=== PATIENT | female | born 1950 | race Caucasian/White ===

== ENCOUNTER 2018-09-06 18:02 | Emergency (ER) | payer MEDICARE, OTHER ==
[2018-09-06 18:18] VITALS: TEMP 97.7
[2018-09-06] MEDS ORDERED: hydrALAZINE HCL 20 MG/ML 1 ML VIAL IVP STA (18:42)
--- NOTE | 2018-09-06 18:45 | ED ---
General Adult HPI - General Chief complaint: Recheck/Abnormal Lab/Rx Stated complaint: Dizziness, High BP Time Seen by Provider: 09/06/18 18:05 Source: patient, RN notes reviewed Mode of arrival: ambulatory Limitations: no limitations - History of Present Illness Initial comments: This is a 68-year-old female who presents emergency Department complaining that her blood pressures been hyper patient states she went to urgent care about a month ago and they gave her lisinopril but she ran out of it and has not been able to see another physician since. Patient states her daughtersand has been taking her blood pressures been high every day and today she decided come the emergency department because she was experiencing a little lightheadedness. Pat ient denies headache patient denies any numbness or focal weakness. Patient denies any chest pain difficulty breathing shortness breath per patient denies any palpitations. Patient denies any blurred vision. Patient denies any abdominal pain. Patient denies any recent fever chills or cough. Patient denies any nausea vomiting diarrhea. Patient denies any leg swelling or calf tenderness. - Related Data Home Medications Medication Instructions Recorded Confirmed Azo (Unknown) 1 tab PO DAILY 09/06/18 09/06/18 Fluticasone Nasal [place] [Flonase 2 sprays EA NOSTRIL BID 09/06/18 09/06/18 Nasal [place]] Glucosamine-Chondr 500-400Mg 1 tab PO DAILY 09/06/18 09/06/18 Ipratropium [place] 0.06%Nasal 2 sprays EA NOSTRIL HS 09/06/18 09/06/18 [Atrovent Nasal 0.06%] Lisinopril [Zestril] 10 mg PO DAILY 09/06/18 09/06/18 Multivitamin [Multivitamins Adult 1 tab PO DAILY 09/06/18 09/06/18 Gummies] Previous Rx's Medication Instructions Recorded amLODIPine [Norvasc] 5 mg PO DAILY #30 tab 09/06/18 Allergies Allergy/AdvReac Type Severity Reaction Status Date / Time No Known Allergies Allergy Verified 09/06/18 18:36 Review of Systems ROS Statement: Those systems with pertinent positive or pertinent negative responses have been documented in the HPI. ROS Other: All systems not noted in ROS Statement are negative. Past Medical History Past Medical History: Hypertension History of Any Multi-Drug Resistant Organisms: None Reported Past Surgical History: Tonsillectomy Past Psychological History: No Psychological Hx Reported Smoking Status: Former smoker Past Alcohol Use History: None Reported Past Drug Use History: None Reported General Exam - General Exam Comments Initial Comments: GENERAL: Patient is well-developed and well-nourished. Patient is nontoxic and well- hydrated and is in no acute distress. ENT: Neck is soft and supple. No significant lymphadenopathy is noted. Oropharynx is clear. Moist mucous membranes. Neck has full range of motion without eliciting any pain. EYES: The sclera were anicteric and conjunctiva were pink and moist. Extraocular movements were intact and pupils were equal round and reactive to light. Eyelids were unremarkable. PULMONARY: Unlabored respirations. Good breath sounds bilaterally. No audible rales rhonchi or wheezing was noted. CARDIOVASCULAR: There is a regular rate and rhythm without any murmurs gallops or rubs. ABDOMEN: Soft and nontender with normal bowel sounds. No palpable organomegaly was noted. There is no palpable pulsatile mass. SKIN: Skin is clear with no lesions or rashes and otherwise unremarkable. NEUROLOGIC: Patient is alert and oriented x3. Cranial nerves II through XII are grossly intact. Motor and sensory are also intact. Normal speech, volume and content. Symmetrical smile. MUSCULOSKELETAL: Normal extremities with adequate strength and full range of motion. No lower extremity swelling or edema. No calf tenderness. LYMPHATICS: No significant lymphadenopathy is noted PSYCHIATRIC: Normal psychiatric evaluation. Limitations: no limitations Course Vital Signs 09/06/18 09/06/18 09/06/18 18:12 18:33 18:40 Temperature 97.7 F Pulse Rate 79 71 Respiratory 18 46 H Rate Blood Pressure 209/122 230/125 O2 Sat by Pulse 99 98 97 Oximetry 09/06/18 09/06/18 09/06/18 18:42 18:50 19:00 Temperature Pulse Rate 66 71 73 Respiratory 18 10 L 11 L Rate Blood Pressure 221/130 230/125 230/125 O2 Sat by Pulse 100 100 97 Oximetry 09/06/18 09/06/18 09/06/18 19:10 19:20 19:30 Temperature Pulse Rate 73 80 84 Respiratory 30 H 16 31 H Rate Blood Pressure 221/130 224/127 224/127 O2 Sat by Pulse 100 99 Oximetry 09/06/18 09/06/18 09/06/18 19:40 19:48 19:50 Temperature Pulse Rate 85 83 83 Respiratory 15 16 21 Rate Blood Pressure 181/110 185/107 185/107 O2 Sat by Pulse 100 100 99 Oximetry 09/06/18 20:00 Temperature Pulse Rate 87 Respiratory 19 Rate Blood Pressure 185/107 O2 Sat by Pulse 100 Oximetry Medical Decision Making - Medical Decision Making EKG shows normal sinus rhythm at 70 bpm NE interval is 130 QRS is 84 Q-T intervals 428 QTC is 462. Patient's EKG shows no ST segment elevation or depression or T wave abnormalities are noted. - Lab Data Result diagrams: 09/06/18 18:57 09/06/18 18:57 Lab Results 09/06/18 09/06/18 09/06/18 Range/Units 18:57 18:57 18:57 WBC 6.0 (3.8-10.6) k/uL RBC 4.22 (3.80-5.40) m/uL Hgb 12.9 (11.4-16.0) gm/dL Hct 40.0 (34.0-46.0) % MCV 94.7 (80.0-100.0) fL MCH 30.5 (25.0-35.0) pg MCHC 32.3 (31.0-37.0) g/dL RDW 13.0 (11.5-15.5) % Plt Count 319 (150-450) k/uL Neutrophils % 70 % Lymphocytes % 20 % Monocytes % 6 % Eosinophils % 2 % Basophils % 1 % Neutrophils # 4.2 (1.3-7.7) k/uL Lymphocytes # 1.2 (1.0-4.8) k/uL Monocytes # 0.3 (0-1.0) k/uL Eosinophils # 0.1 (0-0.7) k/uL Basophils # 0.0 (0-0.2) k/uL PT 10.1 (9.0-12.0) sec INR 0.9 (<1.2) APTT 24.3 (22.0-30.0) sec Sodium 140 (137-145) mmol/L Potassium 3.7 (3.5-5.1) mmol/L Chloride 106 (98-107) mmol/L Carbon Dioxide 27 (22-30) mmol/L Anion Gap 7 mmol/L BUN 16 (7-17) mg/dL Creatinine 0.57 (0.52-1.04) mg/dL Est GFR (CKD-EPI)AfAm >90 (>60 ml/min/1.73 sqM) Est GFR (CKD-EPI)NonAf >90 (>60 ml/min/1.73 sqM) Glucose 86 (74-99) mg/dL Calcium 9.2 (8.4-10.2) mg/dL Magnesium 2.0 (1.6-2.3) mg/dL Total Bilirubin 0.5 (0.2-1.3) mg/dL AST 25 (14-36) U/L ALT 32 (9-52) U/L Alkaline Phosphatase 101 (38-126) U/L Troponin I (0.000-0.034) ng/mL Total Protein 6.8 (6.3-8.2) g/dL Albumin 3.5 (3.5-5.0) g/dL 09/06/18 Range/Units 18:57 WBC (3.8-10.6) k/uL RBC (3.80-5.40) m/uL Hgb (11.4-16.0) gm/dL Hct (34.0-46.0) % MCV (80.0-100.0) fL MCH (25.0-35.0) pg MCHC (31.0-37.0) g/dL RDW (11.5-15.5) % Plt Count (150-450) k/uL Neutrophils % % Lymphocytes % % Monocytes % % Eosinophils % % Basophils % % Neutrophils # (1.3-7.7) k/uL Lymphocytes # (1.0-4.8) k/uL Monocytes # (0-1.0) k/uL Eosinophils # (0-0.7) k/uL Basophils # (0-0.2) k/uL PT (9.0-12.0) sec INR (<1.2) APTT (22.0-30.0) sec Sodium (137-145) mmol/L Potassium (3.5-5.1) mmol/L Chloride (98-107) mmol/L Carbon Dioxide (22-30) mmol/L Anion Gap mmol/L BUN (7-17) mg/dL Creatinine (0.52-1.04) mg/dL Est GFR (CKD-EPI)AfAm (>60 ml/min/1.73 sqM) Est GFR (CKD-EPI)NonAf (>60 ml/min/1.73 sqM) Glucose (74-99) mg/dL Calcium (8.4-10.2) mg/dL Magnesium (1.6-2.3) mg/dL Total Bilirubin (0.2-1.3) mg/dL AST (14-36) U/L ALT (9-52) U/L Alkaline Phosphatase (38-126) U/L Troponin I <0.012 (0.000-0.034) ng/mL Total Protein (6.3-8.2) g/dL Albumin (3.5-5.0) g/dL Disposition Clinical Impression: Hypertensive urgency Disposition: HOME SELF-CARE Condition: Good Instructions (If sedation given, give patient instructions): Hypertension (ED) Prescriptions: amLODIPine [Norvasc] 5 mg PO DAILY #30 tab Is patient prescribed a controlled substance at d/c from ED?: No Referrals: None,Stated [Primary Care Provider] - 1-2 days
[2018-09-06 19:09] LABS: Basophils % (A) 1 %; Eosinophils # (A) 0.1 k/uL (0-0.7); Eosinophils % (A) 2 %; HGB 12.9 gm/dL (11.4-16.0); Lymphocytes # (A) 1.2 k/uL (1.0-4.8); Lymphocytes % (A) 20 %; MCH 30.5 pg (25.0-35.0); MCHC 32.3 g/dL (31.0-37.0); MCV 94.7 fL (80.0-100.0); Mean Platelet Volume 6.6; Monocytes # (A) 0.3 k/uL (0-1.0); Monocytes % (A) 6 %; Neutrophils # (A) 4.2 k/uL (1.3-7.7); Neutrophils % (A) 70 %; Platelet Count 319 k/uL (150-450); RBC 4.22 m/uL (3.80-5.40)
[2018-09-06 19:19] LABS: ALT 32 U/L (9-52); AST 25 U/L (14-36); Albumin 3.5 g/dL (3.5-5.0); Alkaline Phosphatase 101 U/L (38-126); Anion Gap 7 mmol/L; Blood Urea Nitrogen 16 mg/dL (7-17); Calcium 9.2 mg/dL (8.4-10.2); Carbon Dioxide 27 mmol/L (22-30); Chloride 106 mmol/L (98-107); Glucose 86 mg/dL (74-99); Potassium 3.7 mmol/L (3.5-5.1); Sodium 140 mmol/L (137-145); Total Bilirubin 0.5 mg/dL (0.2-1.3); Total Protein 6.8 g/dL (6.3-8.2)
[2018-09-06 19:21] LABS: INR 0.9 (<1.2); Partial Thromboplastin Time 24.3 sec (22.0-30.0); Prothrombin Time 10.1 sec (9.0-12.0)
[2018-09-06] MEDS ORDERED: ENALAPRILAT 1.25 MG/ML 1 ML VIAL IVP STA (19:53)
--- NOTE | 2018-09-06 19:59 | XR ---
EXAMINATION: XR chest 2V DATE AND TIME: 09/06/2018 7:26 PM CLINICAL INDICATION: PHH; Chest Pain TECHNIQUE: Departmental protocol COMPARISON: None FINDINGS: There is a subtle 3 cm ill-defined opacity superimposed over the lower scapula and the right lateral mid lung zone. The vast bulk of the lung parenchyma is clear bilaterally. The pleural spaces are negative. The cardiac silhouette is not enlarged. Thoracic aorta is tortuous, and the ascending aorta may be enlarged in caliber. The skeletal structures and soft tissues are negative for acute findings. IMPRESSION: NO DEFINITE ACUTE PROCESS. However, two findings are notable: 3 cm opacity over the lateral right midlung zone, and thoracic aor ta ectasia. These can both be further characterized using nonurgent IV contrast chest CT.
[2018-09-06] MEDS ORDERED: ONDANSETRON 4 MG/2 ML VIAL IVP STA (20:10)
[2018-09-06 20:56] VITALS: BP 164/94; PULSE 83; RESP 17
== END 2018-09-06 21:11 | disposition home or self-care (01) ==
LOC: EC 18:02
DX: I16.0 Hypertensive urgency (principal); I10 Essential (primary) hypertension; Z79.51 Long term (current) use of inhaled steroids; Z79.899 Other long term (current) drug therapy; Z87.891 Personal history of nicotine dependence
CPT/HCPCS: 36415; 93005; 80053; 83735; 84484; 85025; 85610; 85730; 71046; 99284; 96374; 96375 ×2; J0360; J2405

== ENCOUNTER → 2018-11-30 | Outpatient (CLI) | payer MEDICARE, OTHER ==
[2018-11-30 16:06] LABS: Albumin/Globulin Ratio 1.74 (1.60-3.17); Anion Gap 5.8 mmol/L (4.00-12.00); Calcium 9.3 mg/dL (8.7-10.3); Carbon Dioxide 31.2 mmol/L (21.6-31.8); Globulin 2.3 g/dL (1.6-3.3); LDL Cholesterol,Calculated 119.4 mg/dL (0.0-131.0); Potassium 4.2 mmol/L (3.5-5.5); Total Bilirubin 0.3 mg/dL (0.2-1.2); Total Protein 6.3 g/dL (6.2-8.2); VLDL Calculation 17.6 mg/dL (5.00-40.00)
== END | disposition home or self-care (01) ==
LOC: LABWHC1 08:13
PROVIDERS: ATTEND Family Medicine
DX: I10 Essential (primary) hypertension (principal)
CPT/HCPCS: 36415; 80053; 80061; 84443

== ENCOUNTER → 2019-02-08 | Outpatient (CLI) | payer MEDICARE, OTHER ==
--- NOTE | 2019-02-08 10:29 | XR ---
EXAMINATION TYPE: XR chest 2V DATE OF EXAM: 02/08/2019 COMPARISON: 09/06/2018 TECHNIQUE: PA and lateral views submitted. HISTORY: Abnormal x-ray FINDINGS: The lungs are clear and there is no pneumothorax, pleural effusion, or focal pneumonia. Tortuous ao rta noted. Hyperinflation seen. Hypertrophic change spine. Arthropathy of the AC joints. Near complet e resolution of density in the right mid lung. IMPRESSION: 1. There appears to be near complete resolution of previously described density in the right midlung. 2. Correlate for COPD
== END | disposition home or self-care (01) ==
LOC: RADXRMAIN 10:07
PROVIDERS: ATTEND Family Medicine
DX: R93.89 Abnormal findings on diagnostic imaging of other specified body structures (principal); R07.89 Other chest pain; R06.09 Other forms of dyspnea
CPT/HCPCS: 71046

== ENCOUNTER → 2019-02-21 | Outpatient (CLI) | payer MEDICARE, OTHER ==
--- NOTE | 2019-02-21 12:03 | EST ---
EXERCISE STRESS DATE OF SERVICE: 02/21/2019 AGE: 68 SEX: Female HT: 62" WT: 104 pounds PROTOCOL: Cardiolite Farhad STAGE: IV DURATION OF EXERCISE: 15 minutes HEART RATE REST: 55 BLOOD PRESSURE REST: 157/85 MAXIMUM HEART RATE ACHIEVED: 124 MAXIMUM BLOOD PRESSURE: 185/98 85% MPHR: 128 100% MPHR: 150 METS: 11 INDICATIONS: Chest pain. CLINICAL INFORMATION: Baseline EKG shows sinus rhythm, normal axis, normal intervals. Patient exercised on Farhad protocol for a total of 15 minutes. However, patient was between stage III and stage IV and only the inclination was increased so the maximum METs achieved was around 11. The patient attained 83% of predicted maximal heart rate without chest pain or diagnostic ST-segment depression. CONCLUSIONS: 1. Good exercise tolerance. 2. Inconclusive stress test by EKG criteria due to inability to attain target heart rate. 3. Cardiolite portion of the stress test will be reported separately. MMODL / IJN: [id number] /
--- NOTE | 2019-02-21 12:07 | NM ---
EXAMINATION TYPE: NM stress cardiolite complete DATE OF EXAM: 02/21/2019 COMPARISON: NONE HISTORY: Atypical chest pain TECHNIQUE: After the intravenous administration of 9.4 mCi Tc 99m Sestamibi - Rest images obtained 4 5 minutes post injection. The patient exercised using a FELIX protocol and 1 minute prior to peak e xercise was injected with 25.8 mCi Tc 99m Sestamibi - Stress images obtained 10 minutes post injectio n. Patient achieved just short of 85% predicted maximal heart rate, 83% was obtained. FINDINGS: Targeted heart rate was achieved during performance of the study. Review of stress and rest SPECT irene ges demonstrates no distinct perfusion abnormality. Some questionable mild decreased uptake along the septum on stress images as compared to rest images on short axis views is not confirmed on additiona l images. Gated analysis shows normal wall motion with an estimated left ventricular ejection fractio n of 69 %. IMPRESSION: Questionable stress-induced left ventricular myocardial ischemia along the septum on short axis views only, suboptimal stress, elevated ejection fraction, consider echocardiographic correlation. A Yellow level critical message alert has been initiated for Joaquina Arriaga MD via the [facility] Critical Results System on 02/21/2019 12:04 PM. This message alert has been sent to Joaquina lucero MD via the preferences provided by the clinician for the receipt of Radiology Critical Findin gs. Message ID [id number].
== END ==
LOC: RADNMMAIN 07:31
PROVIDERS: ATTEND Family Medicine
DX: I10 Essential (primary) hypertension (principal); R07.89 Other chest pain; R06.09 Other forms of dyspnea
CPT/HCPCS: 93017; 78452; A9500

== ENCOUNTER → 2019-02-28 | Outpatient (CLI) | payer MEDICARE, OTHER ==
--- NOTE | 2019-03-01 07:21 | ECHOF ---
Referral Reason:R06.02 shortness of breath, I10 HTN, MEASUREMENTS -------- HEIGHT: 157.5 cm WEIGHT: 47.2 kg BP: RVIDd: 2.8 cm (< 3.3) IVSd: 1.1 cm (0.6 - 1.1) LVIDd: 3.6 cm (3.9 - 5.3) LVPWd: 1.3 cm (0.6 - 1.1) IVSs: 1.7 cm LVIDs: 2.4 cm LVPWs: 1.7 cm LAESV Index (A-L): 39.88 ml/m Ao Diam: 2.6 cm (2.0 - 3.7) AV Cusp: 1.7 cm (1.5 - 2.6) LA Diam: 3.9 cm (2.7 - 3.8) MV EXCURSION: 12.755 mm (> 18.000) MV EF SLOPE: 103 mm/s (70 - 150) EPSS: 0.6 cm MV E Joe: 0.83 m/s MV DecT: 172 ms MV A Joe: 0.66 m/s MV E/A Ratio: 1.25 AR PHT: 562 ms RAP: 5.00 mmHg RVSP: 25.48 mmHg FINDINGS -------- Sinus rhythm. This was a technically adequate study. The left ventricular size is normal. There is mild concentric left ventricular hypertrophy. Overa ll left ventricular systolic function is normal with, an EF between 55 - 60 %. The diastolic fillin g pattern is normal for the age of the patient 11.36. The right ventricle is normal in size. LA is moderately dilated 34-39 ml/m2 The right atrial size is normal. Interatrial and interventricular septum intact. There is mild aortic regurgitation. There is no evidence of aortic stenosis. Mild mitral annular calcification present. Moderate mitral regurgitation is present. Mild tricuspid regurgitation present. There is no evidence of pulmonary hypertension. The right v entricular systolic pressure, as measured by Doppler, is 25.48mmHg. There is no pulmonic regurgitation present. The aortic root size is normal. The inferior vena cava is mildly dilated. There is no pericardial effusion. CONCLUSIONS -------- 1. Sinus rhythm. 2. This was a technically adequate study. 3. The left ventricular size is normal. 4. There is mild concentric left ventricular hypertrophy. 5. The diastolic filling pattern is normal for the age of the patient 11.36 6. The right ventricle is normal in size. 7. LA is moderately dilated 34-39 ml/m2 8. The right atrial size is normal. 9. Interatrial and interventricular septum intact. 10. There is mild aortic regurgitation. 11. There is no evidence of aortic stenosis. 12. Mild mitral annular calcification present. 13. Moderate mitral regurgitation is present. 14. Mild tricuspid regurgitation present. 15. There is no evidence of pulmonary hypertension. 16. The right ventricular systolic pressure, as measured by Doppler, is 25.48mmHg. 17. There is no pulmonic regurgitation present. 18. The aortic root size is normal. 19. The inferior vena cava is mildly dilated. 20. There is no pericardial effusion. INSURANCE SALES REPRESENTATIVE: Chichi Olivas RDCS
== END | disposition home or self-care (01) ==
LOC: RADECHMAIN 16:06
PROVIDERS: ATTEND Family Medicine
DX: I08.3 Combined rheumatic disorders of mitral, aortic and tricuspid valves (principal); I10 Essential (primary) hypertension
CPT/HCPCS: 93306

== ENCOUNTER 2021-09-29 13:09 | Emergency (ER) | payer MEDICARE, OTHER ==
[2021-09-29 13:28] VITALS: TEMP 98.7
--- NOTE | 2021-09-29 14:58 | ED ---
Psych HPI - General Source: patient, family, RN notes reviewed Mode of arrival: ambulatory Limitations: no limitations <Royce Schmitz - Last Filed: 09/29/21 14:57> <Luis Antonio Sow - Last Filed: 09/29/21 23:29> - General Chief Complaint: Psychiatric Symptoms Stated Complaint: Bug bites/abd pain Time Seen by Provider: 09/29/21 13:35 - History of Present Illness Initial Comments: This a 71-year-old female presents emergency department for multiple complaints. Patient states that she's been having issues with bugs in her rooms. States he was playing zigzag bugs in which she states that she started having spots in her face. Patient states she's also developed some abdominal discomfort states is primarily in her suprapubic region. Does not radiate. She states at times that she thinks there is dark urine. She reports no fevers or chills. Patient is brought here by family for evaluation as she's been having very bizarre behavior this is normally not her normal baseline. She denies any head injury no loss conscious. Patient denies any new medications there is no history of drug abuse. (Royce Schmitz) - Related Data Home Medications Medication Instructions Recorded Confirmed Losartan Potassium 100 mg PO HS 09/29/21 09/29/21 amLODIPine [Norvasc] 10 mg PO DAILY 09/29/21 09/29/21 hydroCHLOROthiazide [Hydrodiuril] 25 mg PO DAILY 09/29/21 09/29/21 Previous Rx's Medication Instructions Recorded Docusate [Colace] 100 mg PO BID PRN 7 Days #14 09/29/21 capsule Allergies Allergy/AdvReac Type Severity Reaction Status Date / Time No Known Allergies Allergy Verified 09/29/21 14:24 Review of Systems ROS Other: All systems not noted in ROS Statement are negative. <Royce Schmitz - Last Filed: 09/29/21 14:57> ROS Other: All systems not noted in ROS Statement are negative. <Luis Antonio Sow - Last Filed: 09/29/21 23:29> ROS Statement: Those systems with pertinent positive or pertinent negative responses have been documented in the HPI. Past Medical History Past Medical History: Hypertension History of Any Multi-Drug Resistant Organisms: None Reported Past Surgical History: Tonsillectomy Past Psychological History: No Psychological Hx Reported Smoking Status: Never smoker Past Alcohol Use History: None Reported Past Drug Use History: None Reported <Royce Schmitz - Last Filed: 09/29/21 14:57> General Exam Limitations: no limitations General appearance: alert, in no apparent distress Head exam: Present: atraumatic, normocephalic, normal inspection Eye exam: Present: normal appearance, PERRL, EOMI. Absent: scleral icterus, conjunctival injection, periorbital swelling ENT exam: Present: normal exam, normal oropharynx, mucous membranes moist Neck exam: Present: normal inspection, full ROM. Absent: tenderness, meningismus, lymphadenopathy Respiratory exam: Present: normal lung sounds bilaterally. Absent: respiratory distress, wheezes, rales, rhonchi, stridor Cardiovascular Exam: Present: regular rate, normal rhythm, normal heart sounds. Absent: systolic murmur, diastolic murmur, rubs, gallop, clicks GI/Abdominal exam: Present: soft, tenderness (Suprapubic), normal bowel sounds. Absent: distended, guarding, rebound, rigid Back exam: Absent: CVA tenderness (R), CVA tenderness (L) Neurological exam: Present: alert, oriented X3 Skin exam: Present: warm, dry, intact, normal color. Absent: rash <Royce Schmitz - Last Filed: 09/29/21 14:57> Course Vital Signs 09/29/21 09/29/21 09/29/21 13:18 16:12 18:25 Temperature 98.7 F Pulse Rate 75 74 67 Respiratory 16 18 18 Rate Blood Pressure 134/85 157/98 146/92 O2 Sat by Pulse 98 98 98 Oximetry Medical Decision Making - Lab Data Result diagrams: 09/29/21 14:38 09/29/21 14:38 <Luis Antonio Sow - Last Filed: 09/29/21 23:29> - Medical Decision Making Patient was signed out to me pending EPS evaluation. I did add on a CT head due to the concern for possible hallucinations with the bugs. This is negative for any acute intracranial process. EPS evaluated the patient and cleared her for discharge home. They believe that there is some truth to the patient having bugs at the house. However when I went to up to the patient, she was complaining of abdominal pain. On reevaluation, patient has obvious tenderness to palpation, no guarding, no rebound tenderness. Denies any nausea or vomiting. Does state she has been constipated previously, but has been having bowel movements every 2 days or so lately. They're somewhat normal, however she is scared there are "bugs in them." Laboratory studies including abdominal labs and urinary studies were unremarkable. However due to her continued concern and discussed with her as well as her family members, the decision was made to obtain CT abdomen and pelvis. This revealed no evidence of acute process. There is a stool burden, however clinically there is no concern for ileus or SBO she is having active bowel movements every few days, last having one yesterday. I discussed the findings with the patient's family members. I did offer stool softeners which she accepted and but she is pretty injuries at home as well. Patient was comfortable being discharged home. She will return with any worsening symptoms. I will provide the patient with a prescription for docusate. I instructed the patient to follow up with their PCP in the next 3 days. I explained that the patient should return to the emergency department if they experience any worsening symptoms. Strict return precautions were discussed with the patient. The patient expressed understanding of these instructions. I answered all questions that the patient had. The patient was discharged home in good condition with their prescriptions and follow up information. (Luis Antonio Sow) - Lab Data Lab Results 09/29/21 09/29/21 09/29/21 Range/Units 14:38 14:38 14:38 WBC (3.8-10.6) k/uL RBC (3.80-5.40) m/uL Hgb (11.4-16.0) gm/dL Hct (34.0-46.0) % MCV (80.0-100.0) fL MCH (25.0-35.0) pg MCHC (31.0-37.0) g/dL RDW (11.5-15.5) % Plt Count (150-450) k/uL MPV Neutrophils % % Lymphocytes % % Monocytes % % Eosinophils % % Basophils % % Neutrophils # (1.3-7.7) k/uL Lymphocytes # (1.0-4.8) k/uL Monocytes # (0-1.0) k/uL Eosinophils # (0-0.7) k/uL Basophils # (0-0.2) k/uL Sodium 137 (137-145) mmol/L Potassium 3.6 (3.5-5.1) mmol/L Chloride 104 (98-107) mmol/L Carbon Dioxide 26 (22-30) mmol/L Anion Gap 7 mmol/L BUN 22 H (7-17) mg/dL Creatinine 0.92 (0.52-1.04) mg/dL Est GFR (CKD-EPI)AfAm 72 (>60 ml/min/1.73 sqM) Est GFR (CKD-EPI)NonAf 62 (>60 ml/min/1.73 sqM) Glucose 87 (74-99) mg/dL Plasma Lactic Acid Tony 0.9 (0.7-2.0) mmol/L Calcium 9.3 (8.4-10.2) mg/dL Magnesium 2.1 (1.6-2.3) mg/dL Total Bilirubin 0.5 (0.2-1.3) mg/dL AST 31 (14-36) U/L ALT 27 (4-34) U/L Alkaline Phosphatase 68 (38-126) U/L Total Protein 7.2 (6.3-8.2) g/dL Albumin 4.2 (3.5-5.0) g/dL Lipase 110 (23-300) U/L Urine Color Yellow Urine Appearance Clear (Clear) Urine pH 6.0 (5.0-8.0) Ur Specific [place] 1.015 (1.001-1.035) Urine Protein Negative (Negative) Urine Glucose (UA) Negative (Negative) Urine Ketones 1+ H (Negative) Urine Blood Negative (Negative) Urine Nitrite Negative (Negative) Urine Bilirubin Negative (Negative) Urine Urobilinogen <2.0 (<2.0) mg/dL Ur Leukocyte Esterase Negative (Negative) Urine Opiates Screen Not Detected (NotDetected) Ur Oxycodone Screen Not Detected (NotDetected) Urine Methadone Screen Not Detected (NotDetected) Ur Propoxyphene Screen Not Detected (NotDetected) Ur Barbiturates Screen Not Detected (NotDetected) U Tricyclic Antidepress Not Detected (NotDetected) Ur Phencyclidine Scrn Not Detected (NotDetected) Ur Amphetamines Screen Not Detected (NotDetected) U Methamphetamines Scrn Not Detected (NotDetected) U Benzodiazepines Scrn Not Detected (NotDetected) Urine Cocaine Screen Not Detected (NotDetected) U Marijuana (THC) Screen Not Detected (NotDetected) 09/29/21 Range/Units 14:38 WBC 4.7 (3.8-10.6) k/uL RBC 4.65 (3.80-5.40) m/uL Hgb 15.0 (11.4-16.0) gm/dL Hct 44.8 (34.0-46.0) % MCV 96.3 (80.0-100.0) fL MCH 32.4 (25.0-35.0) pg MCHC 33.6 (31.0-37.0) g/dL RDW 13.2 (11.5-15.5) % Plt Count 220 (150-450) k/uL MPV 6.9 Neutrophils % 68 % Lymphocytes % 22 % Monocytes % 6 % Eosinophils % 1 % Basophils % 1 % Neutrophils # 3.2 (1.3-7.7) k/uL Lymphocytes # 1.0 (1.0-4.8) k/uL Monocytes # 0.3 (0-1.0) k/uL Eosinophils # 0.0 (0-0.7) k/uL Basophils # 0.0 (0-0.2) k/uL Sodium (137-145) mmol/L Potassium (3.5-5.1) mmol/L Chloride (98-107) mmol/L Carbon Dioxide (22-30) mmol/L Anion Gap mmol/L BUN (7-17) mg/dL Creatinine (0.52-1.04) mg/dL Est GFR (CKD-EPI)AfAm (>60 ml/min/1.73 sqM) Est GFR (CKD-EPI)NonAf (>60 ml/min/1.73 sqM) Glucose (74-99) mg/dL Plasma Lactic Acid Tony (0.7-2.0) mmol/L Calcium (8.4-10.2) mg/dL Magnesium (1.6-2.3) mg/dL Total Bilirubin (0.2-1.3) mg/dL AST (14-36) U/L ALT (4-34) U/L Alkaline Phosphatase (38-126) U/L Total Protein (6.3-8.2) g/dL Albumin (3.5-5.0) g/dL Lipase (23-300) U/L Urine Color Urine Appearance (Clear) Urine pH (5.0-8.0) Ur Specific [place] (1.001-1.035) Urine Protein (Negative) Urine Glucose (UA) (Negative) Urine Ketones (Negative) Urine Blood (Negative) Urine Nitrite (Negative) Urine Bilirubin (Negative) Urine Urobilinogen (<2.0) mg/dL Ur Leukocyte Esterase (Negative) Urine Opiates Screen (NotDetected) Ur Oxycodone Screen (NotDetected) Urine Methadone Screen (NotDetected) Ur Propoxyphene Screen (NotDetected) Ur Barbiturates Screen (NotDetected) U Tricyclic Antidepress (NotDetected) Ur Phencyclidine Scrn (NotDetected) Ur Amphetamines Screen (NotDetected) U Methamphetamines Scrn (NotDetected) U Benzodiazepines Scrn (NotDetected) Urine Cocaine Screen (NotDetected) U Marijuana (THC) Screen (NotDetected) Disposition <Royce Schmitz - Last Filed: 09/29/21 14:57> Is patient prescribed a controlled substance at d/c from ED?: No <Luis Antonio Sow - Last Filed: 09/29/21 23:29> Clinical Impression: Encounter for psychiatric assessment, Constipation, Abdominal pain of unknown cause Disposition: HOME SELF-CARE Condition: Good Instructions (If sedation given, give patient instructions): Constipation (ED) Additional Instructions: Use prune juice as needed for constipation. Can also use stool softeners. Prescriptions: Docusate [Colace] 100 mg PO BID PRN 7 Days #14 capsule PRN Reason: Constipation Referrals: None,Stated [Primary Care Provider] - 1-2 days Annamarie Lay MD [REFERRING] - 1-2 days Chan Daly MD [STAFF PHYSICIAN] - As Soon As Possible (For colonoscopy )
[2021-09-29 15:15] LABS: Albumin 4.2 g/dL (3.5-5.0); Calcium 9.3 mg/dL (8.4-10.2); Magnesium 2.1 mg/dL (1.6-2.3); Potassium 3.6 mmol/L (3.5-5.1); Total Bilirubin 0.5 mg/dL (0.2-1.3); Total Protein 7.2 g/dL (6.3-8.2)
[2021-09-29 15:17] LABS: Appearance,Urine Clear (Clear); Bilirubin,Urine Negative (Negative); Blood,Urine Negative (Negative); Color,Urine Yellow; Glucose,Urine (UA) Negative (Negative); Ketones,Urine 1+ (Negative); Leukocyte Esterase,Urine Negative (Negative); Nitrite,Urine Negative (Negative); Protein,Urine Negative (Negative); Specific Gravity,Urine 1.015 (1.001-1.035); Urobilinogen,Urine <2.0 mg/dL (<2.0)
[2021-09-29 15:31] LABS: Amphetamine Screen,Urine Not Detected (NotDetected); Barbiturate Screen,Urine Not Detected (NotDetected); Benzodiazepines Screen,Urine Not Detected (NotDetected); Cocaine Screen,Urine Not Detected (NotDetected); Methadone Screen, Urine Not Detected (NotDetected); Opiate Screen,Urine Not Detected (NotDetected); Oxycodone Screen, Urine Not Detected (NotDetected); Phencyclidine Screen,Urine Not Detected (NotDetected); Tricyclic Antidepressant,Urine Not Detected (NotDetected); Urn Cannabinoid Scrn Not Detected (NotDetected)
[2021-09-29 15:53] LABS: Basophils % (A) 1 %; Eosinophils % (A) 1 %; HCT 44.8 % (34.0-46.0); Lymphocytes % (A) 22 %; MCH 32.4 pg (25.0-35.0); MCHC 33.6 g/dL (31.0-37.0); MCV 96.3 fL (80.0-100.0); Mean Platelet Volume 6.9; Monocytes # (A) 0.3 k/uL (0-1.0); Monocytes % (A) 6 %; Neutrophils # (A) 3.2 k/uL (1.3-7.7); Neutrophils % (A) 68 %; Platelet Count 220 k/uL (150-450); RBC 4.65 m/uL (3.80-5.40); RDW 13.2 % (11.5-15.5); WBC 4.7 k/uL (3.8-10.6)
[2021-09-29 16:16] VITALS: RESP 18
--- NOTE | 2021-09-29 17:25 | CT ---
EXAMINATION TYPE: CT brain wo con CT DLP: 1102.4 mGycm, Automated exposure control for dose reduction was used. DATE OF EXAM: 09/29/2021 5:11 PM COMPARISON: None. CLINICAL INDICATION:Female, 71 years old with history of delirium, Altered mental status. TECHNIQUE: Brain: Multiple axial CT images of the brain were obtained without IV contrast. FINDINGS: Brain: Extra-axial spaces: No abnormal extra-axial fluid collections. Ventricular system: Dilatation in proportion to cerebral atrophy. Cerebral parenchyma: Cerebral atrophy. No acute intraparenchymal hemorrhage or mass effect. The gong -white junction is well differentiated. Scattered hypoattenuating areas are seen within the white mat ter. Cerebellum: Unremarkable. Mass effect: No evidence of midline shift. Intracranial vasculature: Atherosclerotic calcifications of the intracranial vessels. Soft tissues: Normal. Calvarium/osseous structures: No depressed skull fracture. Paranasal sinuses and mastoid air cells: Clear Visualized orbits: Left aphakia IMPRESSION: 1. No acute intracranial process. 2. Nonspecific white matter changes, likely secondary to chronic small vessel ischemic disease.
[2021-09-29 18:27] VITALS: BP 146/92; PULSE 67
[2021-09-29] MEDS ORDERED: SODIUM CHLORIDE 0.9% 500 ML 500 ML IV STA (18:43)
[2021-09-29] MEDS ORDERED: MORPHINE SULFATE 4 MG/ML SYRINGE IVP STA (18:43)
--- NOTE | 2021-09-29 19:40 | CT ---
EXAMINATION TYPE: CT abdomen pelvis w con CT DLP: 423.8 mGycm, Automated exposure control for dose reduction was used. DATE OF EXAM: 09/29/2021 7:21 PM COMPARISON: None CLINICAL INDICATION:Female, 71 years old with history of acute abdominal pain, nonlocalized; epigastr ic pain TECHNIQUE: Standard CT of the abdomen and pelvis IV contrast no oral. Coronal and sagittal reformat s were performed. FINDINGS: LOWER CHEST: Unremarkable ABDOMEN LIVER: Hepatic cyst GALLBLADDER AND BILE DUCTS: Unremarkable. PANCREAS: Unremarkable. SPLEEN: Unremarkable. ADRENAL GLANDS: Unremarkable. KIDNEYS AND URETERS: No evidence of hydronephrosis or renal calculus. The ureters are unremarkable. PELVIS BLADDER: Unremarkable REPRODUCTIVE: Coarse calcification likely representing degenerating fibroid. ABDOMEN & PELVIS STOMACH AND BOWEL: Large stool burden throughout the colon. Scattered small bowel feces is seen throu ghout the abdomen. No evidence of bowel obstruction. PERITONEUM: No evidence of pneumoperitoneum or free fluid. VASCULATURE: No evidence of aortic aneurysm. Mild atherosclerosis of the arterial vasculature. MUSCULOSKELETAL: No acute osseous abnormalities. Multilevel disc degeneration changes. LYMPH NODES: No gross evidence for lymphadenopathy. SOFT TISSUE/ABDOMINAL WALL: Unremarkable IMPRESSION: 1. No evidence of acute process to explain the patient's epigastric pain. 2. Moderate to large stool burden throughout the colon with small bowel feces correlate for ileus.
[2021-09-29] MEDS ORDERED: DOCUSATE 100 MG CAP PO STA (19:59)
== END 2021-09-29 20:13 | disposition home or self-care (01) ==
LOC: EC 13:09
DX: Z04.6 Encounter for general psychiatric examination, requested by authority (principal); R10.9 Unspecified abdominal pain; K59.00 Constipation, unspecified; I10 Essential (primary) hypertension; Z79.899 Other long term (current) drug therapy
CPT/HCPCS: 82075; 36415; 80053; 83605; 83690; 83735; 85025; 81003; 80306; 70450; 74177; 99284; 96374; J2270; Q9967